=== PATIENT | female | born 1945 | race Caucasian/White ===

== ENCOUNTER 2022-01-26 02:33 | Inpatient (IN) | payer MEDICARE, MEDICAID ==
[2022-01-26] MEDS ORDERED: Ondansetron PF 4 MG/2 ML Vial IVP PRN (06:39)
[2022-01-26] MEDS ORDERED: HYDROcodone/Acetaminophen 7.5/325 mg Tablet PO SCH (06:45)
[2022-01-26 07:27] LABS: Mean Corpuscular HGB CONC 31.6 g/dL (32.0-36.0); Mean Corpuscular Hemoglobin 30.4 pg (27.0-31.0); Mean Corpuscular Volume 96.3 fL (78.0-98.0); Platelet Count 155 thou/uL (130-400); RBC Distribution Width 13.5 % (11.5-14.5); Red Blood Cell (RBC) Count 4.29 mill/uL (4.20-5.40); White Blood Cell (WBC) Count 33.1 thou/uL (4.8-10.8)
[2022-01-26 07:36] LABS: INR-International Normal Ratio 1.1; Prothrombin Time 14.2 sec (12.0-14.7)
[2022-01-26 07:37] LABS: PTT 38.3 sec (22.9-36.1)
[2022-01-26 07:38] LABS: Lactic Acid 2.2 mmol/L (0.5-2.2)
[2022-01-26 07:42] LABS: ALT (SGPT) 11 U/L (8-55); AST (SGOT) 18 U/L (5-34); Alkaline Phosphatase 91 U/L (40-110); Anion Gap 17 mmol/L (10-20); BUN (Urea Nitrogen) 15 mg/dL (9.8-20.1); Calc. Creatinine Clearance 95 mL/min (70-130); Calcium 8.9 mg/dL (7.8-10.44); Carbon Dioxide 23 mmol/L (23-31); Chloride 102 mmol/L (98-107); Globulin 3.7 g/dL (2.4-3.5); Glucose 118 mg/dL (83-110); Potassium 4.7 mmol/L (3.5-5.1); Protein, Total 7.7 g/dL (5.8-8.1); Sodium 137 mmol/L (136-145)
[2022-01-26 07:47] LABS: Troponin I 0.025 ng/mL (< 0.028)
[2022-01-26 07:52] LABS: Band 28 % (5-11); Lymphocytes 5 % (21-51); MDiff Complete? YES; Metamyelocyte 1 % (0-0); Monocytes 2 % (0-10); Neutrophil 64 % (42-75); Platelet Morphology Comment Appears Adequate; Polychromasia SLIGHT = 2-3 cells (100X) (0-2/hpf); RBC Morphology Normal; Stomatocytes SLIGHT = 2-5 cells (100X) (0-1/hpf)
[2022-01-26 09:07] LABS: SARS-CoV-2 NAA Rapid Test Not Detected (NotDetected)
[2022-01-26] MEDS ORDERED: ALPRAZolam 0.25 MG TAB PO PRN (10:37)
[2022-01-26] MEDS ORDERED: Cyclobenzaprine 10 MG TAB PO PRN (12:31)
[2022-01-26] MEDS: Pregabalin 75 MG CAP PO SCH ×2 (14:15→20:46)
[2022-01-26] MEDS ORDERED: Guaifenesin DM 100-10/5 ML UDCUP PO PRN (15:04)
[2022-01-26] MEDS: HYDROcodone/Acetaminophen 10/325 mg Tablet PO PRN ×2 (15:55→21:55)
[2022-01-26] MEDS: Acetaminophen 325 MG TAB PO PRN ×2 (17:42→23:18)
[2022-01-26] MEDS: Famotidine 20 MG TAB PO SCH (20:46)
[2022-01-26] MEDS: NIFEdipine XL 60 MG TAB PO SCH (20:46)
[2022-01-26] MEDS: Enoxaparin Sodium 40 MG/0.4 ML SYRINGE SC SCH (20:46)
[2022-01-26] MEDS: DULoxetine 30 MG CAP PO SCH (20:46)
[2022-01-26] MEDS: Bisoprolol Fumarate 5 MG TAB PO SCH (20:46)
[2022-01-26] MEDS ORDERED: traZODone HCl 50 MG TAB PO SCH (21:00)
[2022-01-26] MEDS ORDERED: Zolpidem Tartrate 5 MG TAB PO PRN (21:36)
[2022-01-26] MEDS ORDERED: cefTRIAXone\\ROCEPHIN 2 GM in Sodium Chloride 0.9% 100 ML IVPB SCH (22:00)
[2022-01-26] MEDS ORDERED: cefTRIAXone\\ROCEPHIN 1 GM in Sodium Chloride 0.9% 100 ML IVPB SCH (22:00)
[2022-01-26] MEDS ORDERED: methylPREDNISolone Sod Succ 40 MG VIAL ONE (22:08)
[2022-01-26] MEDS ORDERED: Furosemide 40 MG/4 ML VIAL ONE (22:08)
[2022-01-26 22:38] LABS: Actual Bicarbonate (HCO3a) 23.5 mEq/L (22-28); Base Excess (BEa) -5.9 mEq/L (-2.0 to +3.0); Calcium, Ionized (arterial) 1.17 mmol/L (1.12-1.30); Carboxyhemoglobin (COHb) 1.2 gm% (0.0-3.0); Hemoglobin (Hb) 12.4 g/dL (12.0-16.0); Potassium - ABG Lab 4.02 mmol/L (3.70-5.30)
[2022-01-26 22:40] LABS: CO2 Tension 65.7 mmHg (35.0-45.0); O2 Tension (PaO2), arterial 54.7 mmHg (> 70.0); pH, Arterial 7.17 (7.35-7.45)
[2022-01-26 22:41] LABS: ALV-art Gradient 576.175 mmHg (0-20); Puncture Site RRA
[2022-01-26] MEDS ORDERED: fentaNYL Citrate/PF 2,000 MCG in Sodium Chloride 0.9% 60 ML IV PRN (22:59)
[2022-01-26] MEDS ORDERED: Propofol 1,000 MG/100 ML VIAL IV ONE (22:59)
[2022-01-26] MEDS ORDERED: Lorazepam 2 MG/ML VIAL SLOW IVP PRN (23:00)
[2022-01-26] MEDS ORDERED: fentaNYL Citrate-0.9 % NaCl/PF 100 ML IV SCH (23:00)
[2022-01-26] MEDS ORDERED: Fentanyl BOLUS 250 ML IVPB PRN (23:00)
[2022-01-26] MEDS ORDERED: Propofol BOLUS 1,000 MG/100 ML VIAL IV PRN (23:00)
[2022-01-26] MEDS ORDERED: DISCONTINUE PREVIOUS NARCOTIC PAIN MEDICATIONS AND BENZODIAZEPINES FS SCH (23:00)
[2022-01-26] MEDS ORDERED: Morphine 2 MG/ML VIAL SLOW IVP PRN (23:00)
[2022-01-26] MEDS ORDERED: Midazolam In 0.9 % NaCl/PF 100 ML IVPB SCH (23:00)
[2022-01-26] MEDS: Propofol 1,000 MG/100 ML VIAL IV PRN (23:02)
[2022-01-26 23:09] LABS: Actual Bicarbonate (HCO3a) 25.9 mEq/L (22-28); Base Excess (BEa) 0.9 mEq/L (-2.0 to +3.0); Calcium, Ionized (arterial) 1.08 mmol/L (1.12-1.30); Carboxyhemoglobin (COHb) 1.1 gm% (0.0-3.0); Hemoglobin (Hb) 11.7 g/dL (12.0-16.0); O2 Tension (PaO2), arterial 61.5 mmHg (> 70.0); Potassium - ABG Lab 3.75 mmol/L (3.70-5.30)
[2022-01-26 23:11] LABS: Puncture Site LRA
[2022-01-26] MEDS: Cefepime 2 GM in Sodium Chloride 0.9% 100 ML IVPB SCH (23:19)
[2022-01-26 23:31] LABS: Hemoglobin 11.2 g/dL (12.0-16.0); Mean Corpuscular HGB CONC 31.5 g/dL (32.0-36.0); Mean Corpuscular Volume 95.1 fL (78.0-98.0); Mean Platelet Volume 8.3 fL (7.4-10.4); Platelet Count 128 thou/uL (130-400); RBC Distribution Width 13.4 % (11.5-14.5); Red Blood Cell (RBC) Count 3.74 mill/uL (4.20-5.40); White Blood Cell (WBC) Count 21.6 thou/uL (4.8-10.8)
[2022-01-26 23:47] LABS: ALT (SGPT) 12 U/L (8-55); AST (SGOT) 33 U/L (5-34); Albumin 3.5 g/dL (3.4-4.8); Alkaline Phosphatase 83 U/L (40-110); Anion Gap 16 mmol/L (10-20); BUN (Urea Nitrogen) 17 mg/dL (9.8-20.1); Band 21 % (5-11); Calc. Creatinine Clearance 101 mL/min (70-130); Calcium 8.1 mg/dL (7.8-10.44); Carbon Dioxide 22 mmol/L (23-31); Chloride 99 mmol/L (98-107); Globulin 3.4 g/dL (2.4-3.5); Glucose 170 mg/dL (83-110); Lymphocytes 2 % (21-51); MDiff Complete? YES; Monocytes 3 % (0-10); Neutrophil 74 % (42-75); Potassium 3.8 mmol/L (3.5-5.1); Protein, Total 6.9 g/dL (5.8-8.1); Sodium 133 mmol/L (136-145)
[2022-01-27] MEDS ORDERED: Azithromycin 500 MG in Sodium Chloride 0.9% 250 ML 250 ML IVPB SCH
[2022-01-27] MEDS: VANCOMYCIN 2 GRAM/500 ML BAG 2 GM in Premix Bag 1 BAG IVPB SCH (00:42)
[2022-01-27 04:41] LABS: Anion Gap 12 mmol/L (10-20); BUN (Urea Nitrogen) 19 mg/dL (9.8-20.1); Calc. Creatinine Clearance 97 mL/min (70-130); Calcium 8.2 mg/dL (7.8-10.44); Carbon Dioxide 26 mmol/L (23-31); Chloride 99 mmol/L (98-107); Glucose 158 mg/dL (83-110); Potassium 3.7 mmol/L (3.5-5.1); Sodium 133 mmol/L (136-145)
[2022-01-27 04:53] LABS: #Lymphocytes 0.8 thou/uL (1.20-3.40); #Monocytes 0.4 thou/uL (0.11-0.59); #Neutrophils 18.8 thou/uL (1.40-6.50); %Lymphocytes 3.8 % (21.0-51.0); %Monocytes 2.1 % (0.0-10.0); Mean Corpuscular HGB CONC 31.3 g/dL (32.0-36.0); Mean Corpuscular Hemoglobin 29.9 pg (27.0-31.0); Mean Corpuscular Volume 95.6 fL (78.0-98.0); Mean Platelet Volume 8.8 fL (7.4-10.4); Platelet Count 113 thou/uL (130-400); RBC Distribution Width 13.3 % (11.5-14.5); Red Blood Cell (RBC) Count 3.68 mill/uL (4.20-5.40)
[2022-01-27] MEDS: Levothyroxine Sodium 50 MCG TAB PO SCH (05:40)
[2022-01-27] MEDS: Propofol 1,000 MG/100 ML VIAL IV PRN (05:40)
[2022-01-27] MEDS ORDERED: Non-Formulary Item 1 EACH (Olmesartan Medoxomil [Benicar] 40 MG Tab) PO SCH (09:00)
[2022-01-27] MEDS ORDERED: Non-Formulary Item 1 EACH (Levothyroxine Sodium [Levothyroxine] 50 MCG Capsule) PO SCH (09:00)
[2022-01-27] MEDS: Cefepime 2 GM in Sodium Chloride 0.9% 100 ML IVPB SCH ×2 (09:02→15:25)
[2022-01-27] MEDS: Losartan 25 MG TAB PO SCH (09:02)
[2022-01-27] MEDS: Enoxaparin Sodium 40 MG/0.4 ML SYRINGE SC SCH (09:02)
[2022-01-27] MEDS: Famotidine 20 MG TAB PO SCH ×2 (09:02→20:07)
[2022-01-27] MEDS: Pregabalin 75 MG CAP PO SCH ×3 (09:04→20:07)
[2022-01-27] MEDS: DULoxetine 30 MG CAP PO SCH ×2 (09:05→20:08)
[2022-01-27] MEDS ORDERED: Dexmedetomidine In 0.9 % NaCl 100 ML IVPB SCH (10:45)
[2022-01-27] MEDS: HYDROcodone/Acetaminophen 5/325 mg Tablet PO SCH (20:08)
[2022-01-27] MEDS: NIFEdipine XL 60 MG TAB PO SCH (20:08)
[2022-01-27] MEDS: Bisoprolol Fumarate 5 MG TAB PO SCH (20:09)
[2022-01-27] MEDS ORDERED: Rocuronium Bromide 10 MG/ML (10ML VIAL) ONE (22:22)
[2022-01-28] MEDS: Cefepime 2 GM in Sodium Chloride 0.9% 100 ML IVPB SCH ×2 (00:18→07:55)
[2022-01-28] MEDS ORDERED: Melatonin 3 MG TAB PO SCH (00:45)
[2022-01-28] MEDS: VANCOMYCIN 2 GRAM/500 ML BAG 2 GM in Premix Bag 1 BAG IVPB SCH (01:12)
[2022-01-28 04:51] LABS: #Eosinphils 0.1 thou/uL (0.0-0.7); #Lymphocytes 1.4 thou/uL (1.20-3.40); #Monocytes 1.2 thou/uL (0.11-0.59); #Neutrophils 16.4 thou/uL (1.40-6.50); %Basophils 0.1 % (0.0-1.0); %Eosinophils 0.7 % (0.0-10.0); %Lymphocytes 7.1 % (21.0-51.0); %Monocytes 6.4 % (0.0-10.0); %Neutrophils 85.7 % (42.0-75.0); Hemoglobin 10.5 g/dL (12.0-16.0); Mean Corpuscular HGB CONC 30.8 g/dL (32.0-36.0); Mean Corpuscular Hemoglobin 29.9 pg (27.0-31.0); Mean Corpuscular Volume 97.3 fL (78.0-98.0); Platelet Count 102 thou/uL (130-400); RBC Distribution Width 13.3 % (11.5-14.5); Red Blood Cell (RBC) Count 3.51 mill/uL (4.20-5.40); White Blood Cell (WBC) Count 19.1 thou/uL (4.8-10.8)
[2022-01-28 04:54] LABS: Anion Gap 10 mmol/L (10-20); BUN (Urea Nitrogen) 20 mg/dL (9.8-20.1); Calc. Creatinine Clearance 105 mL/min (70-130); Calcium 8.5 mg/dL (7.8-10.44); Carbon Dioxide 29 mmol/L (23-31); Chloride 103 mmol/L (98-107); Glucose 119 mg/dL (83-110); Magnesium 2.1 mg/dL (1.6-2.6); Potassium 3.9 mmol/L (3.5-5.1); Sodium 138 mmol/L (136-145)
[2022-01-28] MEDS: Levothyroxine Sodium 50 MCG TAB PO SCH (05:22)
[2022-01-28] MEDS: HYDROcodone/Acetaminophen 5/325 mg Tablet PO SCH ×3 (07:54→20:05)
[2022-01-28] MEDS: Famotidine 20 MG TAB PO SCH ×2 (07:54→20:04)
[2022-01-28] MEDS: DULoxetine 30 MG CAP PO SCH ×2 (08:10→20:18)
[2022-01-28] MEDS: Pregabalin 75 MG CAP PO SCH ×3 (08:10→20:04)
[2022-01-28] MEDS: Losartan 25 MG TAB PO SCH (13:52)
[2022-01-28] MEDS ORDERED: HYDROmorphone 0.5 MG/0.5 ML SYRINGE SLOW IVP SCH (15:30)
[2022-01-28] MEDS: Oxacillin 2 GM in Sodium Chloride 0.9% 100 ML IVPB SCH ×2 (16:41→20:08)
[2022-01-28] MEDS: NIFEdipine XL 60 MG TAB PO SCH (20:04)
[2022-01-28] MEDS: Bisoprolol Fumarate 5 MG TAB PO SCH (20:07)
[2022-01-29] MEDS: Oxacillin 2 GM in Sodium Chloride 0.9% 100 ML IVPB SCH ×6 (00:10→20:46)
[2022-01-29 00:42] LABS: Vancomycin, Trough 12.4 ug/mL
[2022-01-29] MEDS: Levothyroxine Sodium 50 MCG TAB PO SCH (05:01)
[2022-01-29 05:31] LABS: #Eosinphils 0.1 thou/uL (0.0-0.7); #Lymphocytes 1.3 thou/uL (1.20-3.40); #Monocytes 1.5 thou/uL (0.11-0.59); #Neutrophils 11.1 thou/uL (1.40-6.50); %Basophils 0.2 % (0.0-1.0); %Eosinophils 0.5 % (0.0-10.0); %Monocytes 10.4 % (0.0-10.0); %Neutrophils 79.9 % (42.0-75.0); Hemoglobin 10.3 g/dL (12.0-16.0); Mean Corpuscular HGB CONC 30.5 g/dL (32.0-36.0); Mean Corpuscular Hemoglobin 29.9 pg (27.0-31.0); Mean Corpuscular Volume 98.1 fL (78.0-98.0); Mean Platelet Volume 8.7 fL (7.4-10.4); Platelet Count 107 thou/uL (130-400); RBC Distribution Width 13.2 % (11.5-14.5); Red Blood Cell (RBC) Count 3.44 mill/uL (4.20-5.40)
[2022-01-29 05:42] LABS: Anion Gap 11 mmol/L (10-20); BUN (Urea Nitrogen) 26 mg/dL (9.8-20.1); Calc. Creatinine Clearance 82 mL/min (70-130); Calcium 8.5 mg/dL (7.8-10.44); Carbon Dioxide 26 mmol/L (23-31); Chloride 102 mmol/L (98-107); Glucose 97 mg/dL (83-110); Potassium 3.9 mmol/L (3.5-5.1); Sodium 135 mmol/L (136-145)
[2022-01-29] MEDS: Pregabalin 75 MG CAP PO SCH ×3 (08:22→20:43)
[2022-01-29] MEDS: HYDROcodone/Acetaminophen 5/325 mg Tablet PO SCH ×3 (08:23→20:42)
[2022-01-29] MEDS: DULoxetine 30 MG CAP PO SCH ×2 (08:23→20:42)
[2022-01-29] MEDS: Famotidine 20 MG TAB PO SCH ×2 (08:23→20:44)
[2022-01-29] MEDS: Losartan 25 MG TAB PO SCH (08:28)
[2022-01-29] MEDS ORDERED: Furosemide 40 MG/4 ML VIAL SLOW IVP SCH (15:30)
[2022-01-29] MEDS: Bisoprolol Fumarate 5 MG TAB PO SCH (20:42)
[2022-01-29] MEDS: NIFEdipine XL 60 MG TAB PO SCH (20:49)
[2022-01-30] MEDS: Oxacillin 2 GM in Sodium Chloride 0.9% 100 ML IVPB SCH ×6 (00:57→19:53)
[2022-01-30] MEDS: Levothyroxine Sodium 50 MCG TAB PO SCH ×2 (05:10→07:01)
[2022-01-30] MEDS ORDERED: Lorazepam 2 MG/ML VIAL ONE (05:46)
[2022-01-30] MEDS ORDERED: Lorazepam 2 MG/ML VIAL SLOW IVP SCH (06:00)
[2022-01-30] MEDS ORDERED: Aspirin 300 MG Suppository PR SCH (06:15)
[2022-01-30] MEDS: HYDROcodone/Acetaminophen 5/325 mg Tablet PO SCH (07:44)
[2022-01-30] MEDS: DULoxetine 30 MG CAP PO SCH ×3 (07:44→21:47)
[2022-01-30] MEDS: Losartan 25 MG TAB PO SCH (07:44)
[2022-01-30] MEDS: Famotidine 20 MG TAB PO SCH ×3 (07:44→21:48)
[2022-01-30] MEDS: Pregabalin 75 MG CAP PO SCH (07:45)
[2022-01-30] MEDS ORDERED: Furosemide 100 MG/10 ML VIAL SLOW IVP SCH (13:09)
[2022-01-30] MEDS: Bisoprolol Fumarate 5 MG TAB PO SCH (21:32)
[2022-01-30] MEDS: NIFEdipine XL 60 MG TAB PO SCH ×2 (21:32→21:56)
[2022-01-30] MEDS: Rifampin 300 MG CAP PO SCH (21:46)
[2022-01-31] MEDS: Oxacillin 2 GM in Sodium Chloride 0.9% 100 ML IVPB SCH ×6 (00:57→20:45)
[2022-01-31 04:36] LABS: ALT (SGPT) 13 U/L (8-55); AST (SGOT) 16 U/L (5-34); Albumin 2.6 g/dL (3.4-4.8); Alkaline Phosphatase 67 U/L (40-110); Anion Gap 18 mmol/L (10-20); BUN (Urea Nitrogen) 57 mg/dL (9.8-20.1); Bilirubin, Total 0.6 mg/dL (0.2-1.2); Calc. Creatinine Clearance 24 mL/min (70-130); Calcium 8.4 mg/dL (7.8-10.44); Carbon Dioxide 20 mmol/L (23-31); Chloride 101 mmol/L (98-107); Globulin 3.5 g/dL (2.4-3.5); Glucose 82 mg/dL (83-110); Magnesium 2.3 mg/dL (1.6-2.6); Potassium 4.6 mmol/L (3.5-5.1); Protein, Total 6.1 g/dL (5.8-8.1); Sodium 134 mmol/L (136-145)
[2022-01-31 04:40] LABS: Hemoglobin 11.2 g/dL (12.0-16.0); Mean Corpuscular Hemoglobin 30.5 pg (27.0-31.0); Mean Corpuscular Volume 98.3 fL (78.0-98.0); Mean Platelet Volume 8.6 fL (7.4-10.4); Platelet Count 174 thou/uL (130-400); RBC Distribution Width 13.2 % (11.5-14.5); Red Blood Cell (RBC) Count 3.65 mill/uL (4.20-5.40); White Blood Cell (WBC) Count 18.6 thou/uL (4.8-10.8)
[2022-01-31 04:42] LABS: Band 3 % (5-11); Eosinophils 3 % (0-10); Lymphocytes 9 % (21-51); MDiff Complete? YES; Monocytes 13 % (0-10); Neutrophil 71 % (42-75)
[2022-01-31] MEDS ORDERED: Sodium Chloride 0.9% 500 ML IV SCH (05:00)
[2022-01-31] MEDS: Sodium Chloride 0.9% 1,000 ML IV SCH ×2 (05:17→16:53)
[2022-01-31] MEDS: Levothyroxine Sodium 50 MCG TAB PO SCH (05:18)
[2022-01-31] MEDS ORDERED: Aspirin 300 MG Suppository PR SCH (09:00)
[2022-01-31] MEDS: DULoxetine 30 MG CAP PO SCH ×2 (09:56→20:41)
[2022-01-31] MEDS: Rifampin 300 MG CAP PO SCH ×2 (09:56→21:04)
[2022-01-31] MEDS ORDERED: Aspirin Chewable 81 MG TAB PO SCH (10:00)
[2022-01-31] MEDS ORDERED: Heparin 5,000 UNITS/ML VIAL SC SCH (15:00)
[2022-01-31] MEDS: Bisoprolol Fumarate 5 MG TAB PO SCH (20:41)
[2022-01-31] MEDS: Famotidine 20 MG TAB PO SCH (20:41)
[2022-01-31] MEDS: NIFEdipine XL 60 MG TAB PO SCH (21:04)
[2022-02-01] MEDS: Oxacillin 2 GM in Sodium Chloride 0.9% 100 ML IVPB SCH ×6 (01:29→20:12)
[2022-02-01 04:20] LABS: ALT (SGPT) 9 U/L (8-55); AST (SGOT) 13 U/L (5-34); Albumin 2.3 g/dL (3.4-4.8); Alkaline Phosphatase 64 U/L (40-110); Anion Gap 20 mmol/L (10-20); BUN (Urea Nitrogen) 62 mg/dL (9.8-20.1); Bilirubin, Total 0.7 mg/dL (0.2-1.2); Calc. Creatinine Clearance 19 mL/min (70-130); Calcium 7.6 mg/dL (7.8-10.44); Carbon Dioxide 16 mmol/L (23-31); Chloride 104 mmol/L (98-107); Globulin 3.3 g/dL (2.4-3.5); Glucose 104 mg/dL (83-110); Magnesium 2.2 mg/dL (1.6-2.6); Potassium 4.8 mmol/L (3.5-5.1); Protein, Total 5.6 g/dL (5.8-8.1); Sodium 135 mmol/L (136-145)
[2022-02-01] MEDS: Levothyroxine Sodium 50 MCG TAB PO SCH (04:25)
[2022-02-01 04:53] LABS: Band 6 % (5-11); Hemoglobin 12.7 g/dL (12.0-16.0); Lymphocytes 9 % (21-51); MDiff Complete? YES; Mean Corpuscular HGB CONC 31.5 g/dL (32.0-36.0); Mean Corpuscular Hemoglobin 30.3 pg (27.0-31.0); Mean Corpuscular Volume 96.2 fL (78.0-98.0); Mean Platelet Volume 8.3 fL (7.4-10.4); Monocytes 3 % (0-10); Neutrophil 82 % (42-75); Nucleated RBC 3 % (0); Platelet Count 240 thou/uL (130-400); RBC Distribution Width 13.4 % (11.5-14.5); Red Blood Cell (RBC) Count 4.19 mill/uL (4.20-5.40); White Blood Cell (WBC) Count 22.5 thou/uL (4.8-10.8)
[2022-02-01] MEDS: DULoxetine 30 MG CAP PO SCH ×2 (09:34→19:21)
[2022-02-01] MEDS: Aspirin Chewable 81 MG TAB PO SCH (09:34)
[2022-02-01] MEDS: Sodium Chloride 0.9% 1,000 ML IV SCH ×2 (09:35→21:00)
[2022-02-01] MEDS ORDERED: Gentamicin 80 MG/2 ML VIAL IM SCH ×2 (13:00→13:15)
[2022-02-01] MEDS ORDERED: Gentamicin Sulfate 80 MG in Premix Bag 1 BAG IVPB SCH (13:30)
[2022-02-01] MEDS ORDERED: Heparin 1,000 UNITS/ML VIAL ONE (13:38)
[2022-02-01] MEDS: Bisoprolol Fumarate 5 MG TAB PO SCH (19:21)
[2022-02-01] MEDS: Famotidine 20 MG TAB PO SCH (19:21)
[2022-02-01] MEDS ORDERED: NIFEdipine XL 30 MG TAB PO SCH (21:00)
[2022-02-02] MEDS: Oxacillin 2 GM in Sodium Chloride 0.9% 100 ML IVPB SCH ×6 (00:09→21:38)
[2022-02-02 04:29] LABS: Hemoglobin 10.8 g/dL (12.0-16.0); Mean Corpuscular HGB CONC 31.6 g/dL (32.0-36.0); Mean Corpuscular Hemoglobin 29.9 pg (27.0-31.0); Mean Corpuscular Volume 94.6 fL (78.0-98.0); Mean Platelet Volume 7.7 fL (7.4-10.4); Platelet Count 224 thou/uL (130-400); RBC Distribution Width 13.7 % (11.5-14.5); Red Blood Cell (RBC) Count 3.62 mill/uL (4.20-5.40); White Blood Cell (WBC) Count 16.1 thou/uL (4.8-10.8)
[2022-02-02 04:36] LABS: ALT (SGPT) 9 U/L (8-55); AST (SGOT) 15 U/L (5-34); Albumin 2.2 g/dL (3.4-4.8); Alkaline Phosphatase 53 U/L (40-110); Anion Gap 20 mmol/L (10-20); BUN (Urea Nitrogen) 74 mg/dL (9.8-20.1); Bilirubin, Total 0.7 mg/dL (0.2-1.2); Calc. Creatinine Clearance 15 mL/min (70-130); Calcium 7.4 mg/dL (7.8-10.44); Carbon Dioxide 16 mmol/L (23-31); Chloride 106 mmol/L (98-107); Globulin 3.2 g/dL (2.4-3.5); Glucose 121 mg/dL (83-110); Magnesium 2.4 mg/dL (1.6-2.6); Potassium 4.6 mmol/L (3.5-5.1); Protein, Total 5.4 g/dL (5.8-8.1); Sodium 137 mmol/L (136-145)
[2022-02-02 05:01] LABS: Band 3 % (5-11); Lymphocytes 8 % (21-51); MDiff Complete? YES; Monocytes 4 % (0-10); Neutrophil 85 % (42-75)
[2022-02-02] MEDS: Levothyroxine Sodium 50 MCG TAB PO SCH (06:41)
[2022-02-02] MEDS: Aspirin Chewable 81 MG TAB PO SCH (10:02)
[2022-02-02] MEDS: DULoxetine 30 MG CAP PO SCH (10:06)
[2022-02-02 11:37] LABS: SARS-CoV-2 PCR by NAA Not Detected (NotDetected)
[2022-02-02] MEDS: Acetaminophen 325 MG TAB PO PRN (21:33)
[2022-02-02] MEDS: Bisoprolol Fumarate 5 MG TAB PO SCH (21:35)
[2022-02-02] MEDS: Famotidine 20 MG TAB PO SCH (21:36)
[2022-02-03] MEDS: Oxacillin 2 GM in Sodium Chloride 0.9% 100 ML IVPB SCH ×6 (00:26→20:09)
[2022-02-03] MEDS: Sodium Chloride 0.9% 1,000 ML IV SCH ×2 (00:27→20:09)
[2022-02-03 04:18] LABS: ALT (SGPT) 14 U/L (8-55); AST (SGOT) 26 U/L (5-34); Albumin 2.5 g/dL (3.4-4.8); Alkaline Phosphatase 61 U/L (40-110); Anion Gap 21 mmol/L (10-20); BUN (Urea Nitrogen) 78 mg/dL (9.8-20.1); Bilirubin, Total 0.7 mg/dL (0.2-1.2); Calc. Creatinine Clearance 13 mL/min (70-130); Calcium 7.9 mg/dL (7.8-10.44); Carbon Dioxide 16 mmol/L (23-31); Chloride 106 mmol/L (98-107); Globulin 3.5 g/dL (2.4-3.5); Glucose 116 mg/dL (83-110); Magnesium 2.6 mg/dL (1.6-2.6); Potassium 4.6 mmol/L (3.5-5.1); Sodium 138 mmol/L (136-145)
[2022-02-03 04:57] LABS: Band 1 % (5-11); Eosinophils 2 % (0-10); Hemoglobin 10.3 g/dL (12.0-16.0); Lymphocytes 8 % (21-51); MDiff Complete? YES; Mean Corpuscular HGB CONC 32.1 g/dL (32.0-36.0); Mean Corpuscular Hemoglobin 30.2 pg (27.0-31.0); Mean Platelet Volume 7.9 fL (7.4-10.4); Metamyelocyte 2 % (0-0); Monocytes 8 % (0-10); Neutrophil 79 % (42-75); Platelet Count 209 thou/uL (130-400); Platelet Morphology Comment Appears Adequate; RBC Distribution Width 13.6 % (11.5-14.5); RBC Morphology Normal; Red Blood Cell (RBC) Count 3.42 mill/uL (4.20-5.40); White Blood Cell (WBC) Count 14.5 thou/uL (4.8-10.8)
[2022-02-03] MEDS: Levothyroxine Sodium 50 MCG TAB PO SCH (05:39)
[2022-02-03] MEDS: Aspirin Chewable 81 MG TAB PO SCH (09:27)
[2022-02-03] MEDS: Acetaminophen 325 MG TAB PO PRN ×2 (09:27→19:46)
[2022-02-03 12:18] LABS: Hep B Core Total Ab Non-Reactive (NonReactive)
[2022-02-03 12:19] LABS: HBSAB Concentration Less than 8.00 mIU/mL; HBSAg Index 0.24 S/CO (0-0.99); Hep B Surf AB Non-Reactive (NonReactive); Hep B Surf Ag Non-Reactive S/CO (NonReactive); Hep C IgG Ab Non-Reactive (NonReactive); Hep C Index 0.05 S/CO (0-0.79)
[2022-02-03] MEDS ORDERED: Heparin 10,000 UNITS/ 10 ML VIAL ONE (14:10)
[2022-02-03] MEDS: Famotidine 20 MG TAB PO SCH (19:48)
[2022-02-03] MEDS: Bisoprolol Fumarate 5 MG TAB PO SCH (19:48)
[2022-02-04] MEDS: Oxacillin 2 GM in Sodium Chloride 0.9% 100 ML IVPB SCH ×6 (00:08→20:08)
[2022-02-04] MEDS: Acetaminophen 325 MG TAB PO PRN ×2 (00:11→05:32)
[2022-02-04 04:38] LABS: Band 4 % (5-11); Hemoglobin 9.8 g/dL (12.0-16.0); Hypochromia SLIGHT = 6-15 cells (100X) (0-5/hpf); Lymphocytes 16 % (21-51); MDiff Complete? YES; Mean Corpuscular HGB CONC 32.1 g/dL (32.0-36.0); Mean Corpuscular Hemoglobin 29.8 pg (27.0-31.0); Mean Corpuscular Volume 92.7 fL (78.0-98.0); Monocytes 17 % (0-10); Neutrophil 63 % (42-75); Platelet Count 244 thou/uL (130-400); Platelet Morphology Comment Appears Adequate; RBC Distribution Width 14.1 % (11.5-14.5); White Blood Cell (WBC) Count 18.6 thou/uL (4.8-10.8)
[2022-02-04] MEDS: Levothyroxine Sodium 50 MCG TAB PO SCH (05:33)
[2022-02-04] MEDS: Aspirin Chewable 81 MG TAB PO SCH (08:04)
[2022-02-04 08:11] LABS: ALT (SGPT) 16 U/L (8-55); AST (SGOT) 29 U/L (5-34); Albumin 2.7 g/dL (3.4-4.8); Alkaline Phosphatase 65 U/L (40-110); Anion Gap 18 mmol/L (10-20); BUN (Urea Nitrogen) 62 mg/dL (9.8-20.1); Bilirubin, Total 0.8 mg/dL (0.2-1.2); Calc. Creatinine Clearance 15 mL/min (70-130); Calcium 8.2 mg/dL (7.8-10.44); Carbon Dioxide 19 mmol/L (23-31); Chloride 107 mmol/L (98-107); Globulin 3.9 g/dL (2.4-3.5); Glucose 120 mg/dL (83-110); Potassium 4.2 mmol/L (3.5-5.1); Protein, Total 6.6 g/dL (5.8-8.1); Sodium 140 mmol/L (136-145)
[2022-02-04 08:15] LABS: Actual Bicarbonate (HCO3v) 18 mEq/L (22-28); Base Excess -9.6 mEq/L (-2.0 to +3.0); Chloride (VBG) 105 mmol/L (98-106); Hemoglobin (Hb) 10.2 g/dL (11.7-16.1); Potassium (VBG) 4.24 mmol/L (3.70-5.30); Sodium 136.7 mmol/L (133-146); pH (venous) 7.22 (7.32-7.43)
[2022-02-04] MEDS ORDERED: Sodium Bicarbonate 150 MEQ in Dextrose 5% in Water 1,000 ML IV SCH (10:00)
[2022-02-04] MEDS ORDERED: Gentamicin 80 MG/2 ML VIAL IM SCH (11:00)
[2022-02-04] MEDS ORDERED: GENTAMICIN 80 MG/2 ML IM SCH (14:00)
[2022-02-04] MEDS ORDERED: Heparin 10,000 UNITS/ 10 ML VIAL ONE (14:12)
[2022-02-04] MEDS ORDERED: Morphine 2 MG/ML VIAL SLOW IVP PRN (14:55)
[2022-02-04] MEDS: HYDROcodone/Acetaminophen 10/325 mg Tablet PER TUBE PRN (16:36)
[2022-02-04] MEDS: Morphine 2 MG/ML VIAL SLOW IVP PRN ×2 (17:45→21:08)
[2022-02-04] MEDS: Bisoprolol Fumarate 5 MG TAB PO SCH (20:07)
[2022-02-04] MEDS: Famotidine 20 MG TAB PO SCH (20:07)
[2022-02-04] MEDS: Pregabalin 75 MG CAP PER TUBE SCH (20:08)
[2022-02-04] MEDS: traZODone HCl 50 MG TAB PER TUBE SCH (20:09)
[2022-02-04] MEDS ORDERED: Pregabalin 75 MG CAP PER TUBE SCH (21:00)
[2022-02-05] MEDS: Oxacillin 2 GM in Sodium Chloride 0.9% 100 ML IVPB SCH ×6 (00:34→20:37)
[2022-02-05] MEDS: Morphine 2 MG/ML VIAL SLOW IVP PRN ×3 (00:34→21:00)
[2022-02-05 04:52] LABS: Hemoglobin 8.6 g/dL (12.0-16.0); MDiff Complete? YES; Mean Corpuscular HGB CONC 32.4 g/dL (32.0-36.0); Mean Corpuscular Volume 92.7 fL (78.0-98.0); Mean Platelet Volume 8.4 fL (7.4-10.4); Platelet Count 229 thou/uL (130-400); RBC Distribution Width 14.2 % (11.5-14.5); Red Blood Cell (RBC) Count 2.86 mill/uL (4.20-5.40); White Blood Cell (WBC) Count 19.5 thou/uL (4.8-10.8)
[2022-02-05 04:53] LABS: Band 3 % (5-11); Lymphocytes 9 % (21-51); Monocytes 7 % (0-10); Neutrophil 81 % (42-75); Platelet Morphology Comment Appears Adequate; RBC Morphology Normal
[2022-02-05 04:59] LABS: Anion Gap 14 mmol/L (10-20); BUN (Urea Nitrogen) 45 mg/dL (9.8-20.1); Calc. Creatinine Clearance 19 mL/min (70-130); Calcium 8.2 mg/dL (7.8-10.44); Carbon Dioxide 30 mmol/L (23-31); Chloride 99 mmol/L (98-107); Glucose 123 mg/dL (83-110); Potassium 3.5 mmol/L (3.5-5.1); Sodium 139 mmol/L (136-145)
[2022-02-05] MEDS: Levothyroxine Sodium 50 MCG TAB PO SCH (05:01)
[2022-02-05] MEDS: Aspirin Chewable 81 MG TAB PO SCH (08:34)
[2022-02-05 11:51] LABS: Actual Bicarbonate (HCO3v) 29 mEq/L (22-28); Base Excess 1.7 mEq/L (-2.0 to +3.0); Calcium, Ionized (venous) 1.09 mmol/L (1.16-1.32); Chloride (VBG) 99 mmol/L (98-106); Potassium (VBG) 3.65 mmol/L (3.70-5.30); Sodium 135.9 mmol/L (133-146); pH (venous) 7.28 (7.32-7.43)
[2022-02-05] MEDS ORDERED: Naloxone HCl 0.4 mg/ml Vial ONE (11:55)
[2022-02-05] MEDS ORDERED: Naloxone HCl 0.4 mg/ml Vial IV PRN (12:09)
[2022-02-05] MEDS ORDERED: Heparin 10,000 UNITS/ 10 ML VIAL ONE (14:07)
[2022-02-05] MEDS: Famotidine 20 MG TAB PO SCH (20:36)
[2022-02-05] MEDS: traZODone HCl 50 MG TAB PER TUBE SCH (20:36)
[2022-02-05] MEDS: Pregabalin 75 MG CAP PER TUBE SCH (20:36)
[2022-02-05] MEDS: Bisoprolol Fumarate 5 MG TAB PO SCH (20:37)
[2022-02-05] MEDS: HYDROcodone/Acetaminophen 10/325 mg Tablet PER TUBE PRN (21:46)
[2022-02-06] MEDS: Oxacillin 2 GM in Sodium Chloride 0.9% 100 ML IVPB SCH ×6 (00:59→21:05)
[2022-02-06] MEDS: HYDROcodone/Acetaminophen 10/325 mg Tablet PER TUBE PRN ×2 (03:39→22:38)
[2022-02-06] MEDS: Levothyroxine Sodium 50 MCG TAB PO SCH (04:47)
[2022-02-06 05:01] LABS: Band 24 % (5-11); Eosinophils 2 % (0-10); Hemoglobin 8.5 g/dL (12.0-16.0); Hypochromia SLIGHT = 6-15 cells (100X) (0-5/hpf); Lymphocytes 6 % (21-51); MDiff Complete? YES; Mean Corpuscular HGB CONC 33.6 g/dL (32.0-36.0); Mean Corpuscular Hemoglobin 31.2 pg (27.0-31.0); Mean Platelet Volume 8.8 fL (7.4-10.4); Monocytes 4 % (0-10); Neutrophil 64 % (42-75); Platelet Count 257 thou/uL (130-400); Platelet Morphology Comment Appears Adequate; RBC Distribution Width 14.3 % (11.5-14.5); Red Blood Cell (RBC) Count 2.73 mill/uL (4.20-5.40); White Blood Cell (WBC) Count 20.1 thou/uL (4.8-10.8)
[2022-02-06 05:49] LABS: Anion Gap 17 mmol/L (10-20); BUN (Urea Nitrogen) 56 mg/dL (9.8-20.1); Calc. Creatinine Clearance 17 mL/min (70-130); Calcium 8.7 mg/dL (7.8-10.44); Carbon Dioxide 26 mmol/L (23-31); Chloride 100 mmol/L (98-107); Glucose 115 mg/dL (83-110); Potassium 3.4 mmol/L (3.5-5.1); Sodium 140 mmol/L (136-145)
[2022-02-06] MEDS: Aspirin Chewable 81 MG TAB PO SCH (08:45)
[2022-02-06 09:25] VITALS: BMI 50.5
[2022-02-06] MEDS: Morphine 2 MG/ML VIAL SLOW IVP PRN ×3 (12:08→21:06)
[2022-02-06] MEDS ORDERED: Heparin 10,000 UNITS/ 10 ML VIAL ONE (14:09)
[2022-02-06] MEDS: Famotidine 20 MG TAB PO SCH (21:06)
[2022-02-06] MEDS: Pregabalin 75 MG CAP PER TUBE SCH (21:06)
[2022-02-06] MEDS: Bisoprolol Fumarate 5 MG TAB PO SCH (21:06)
[2022-02-06] MEDS: traZODone HCl 50 MG TAB PER TUBE SCH (21:06)
[2022-02-07] MEDS: Morphine 2 MG/ML VIAL SLOW IVP PRN ×5 (01:08→20:37)
[2022-02-07] MEDS: Oxacillin 2 GM in Sodium Chloride 0.9% 100 ML IVPB SCH ×5 (01:08→16:49)
[2022-02-07] MEDS: Levothyroxine Sodium 50 MCG TAB PO SCH (04:52)
[2022-02-07] MEDS: Aspirin Chewable 81 MG TAB PO SCH (08:34)
[2022-02-07] MEDS: HYDROcodone/Acetaminophen 10/325 mg Tablet PER TUBE PRN (10:10)
[2022-02-07 13:39] VITALS: BP 149/76
[2022-02-07 21:48] VITALS: TEMP 98.5
== END 2022-02-07 19:55 | disposition short-term general hospital (02) | DRG 871 ==
LOC: 2NO 05:21 → CCU 22:32
PROVIDERS: ADMIT Internal Medicine; ATTEND Family Medicine
PROC: 0BH18EZ Insertion of Endotracheal Airway into Trachea, Via Natural or Artificial Opening Endoscopic (ICD-10-PCS; 2022-01-26)
PROC: 5A1935Z Respiratory Ventilation, Less than 24 Consecutive Hours (ICD-10-PCS; 2022-01-26)
PROC: 3E04329 Introduction of Other Anti-infective into Central Vein, Percutaneous Approach (ICD-10-PCS; 2022-01-26)
PROC: 5A0945A Assistance with Respiratory Ventilation, 24-96 Consecutive Hours, High Flow/Velocity Cannula (ICD-10-PCS; 2022-01-28)
PROC: 02HV33Z Insertion of Infusion Device into Superior Vena Cava, Percutaneous Approach (ICD-10-PCS; principal; 2022-01-30)
PROC: B548ZZA Ultrasonography of Superior Vena Cava, Guidance (ICD-10-PCS; 2022-01-30)
PROC: 02PYX3Z Removal of Infusion Device from Great Vessel, External Approach (ICD-10-PCS; 2022-02-02)
PROC: 06HY33Z Insertion of Infusion Device into Lower Vein, Percutaneous Approach (ICD-10-PCS; 2022-02-02)
PROC: 5A0945A Assistance with Respiratory Ventilation, 24-96 Consecutive Hours, High Flow/Velocity Cannula (ICD-10-PCS; 2022-02-03)
PROC: 5A1D70Z Performance of Urinary Filtration, Intermittent, Less than 6 Hours Per Day (ICD-10-PCS; 2022-02-03)
PROC: 5A09357 Assistance with Respiratory Ventilation, Less than 24 Consecutive Hours, Continuous Positive Airway Pressure (ICD-10-PCS; 2022-02-05)
DX: A41.01 Sepsis due to Methicillin susceptible Staphylococcus aureus (principal); J15.211 Pneumonia due to Methicillin susceptible Staphylococcus aureus; J80 Acute respiratory distress syndrome; I50.33 Acute on chronic diastolic (congestive) heart failure; G93.41 Metabolic encephalopathy; R65.21 Severe sepsis with septic shock; N17.0 Acute kidney failure with tubular necrosis; N18.6 End stage renal disease; I33.0 Acute and subacute infective endocarditis; Z68.43 Body mass index [BMI] 50.0-59.9, adult; J98.11 Atelectasis; I13.0 Hypertensive heart and chronic kidney disease with heart failure and stage 1 through stage 4 chronic kidney disease, or unspecified chronic kidney disease; E87.1 Hypo-osmolality and hyponatremia; F05 Delirium due to known physiological condition; T82.858D Stenosis of other vascular prosthetic devices, implants and grafts, subsequent encounter; E03.9 Hypothyroidism, unspecified; G89.4 Chronic pain syndrome; Z51.5 Encounter for palliative care; Z66 Do not resuscitate; R45.1 Restlessness and agitation; N18.30 Chronic kidney disease, stage 3 unspecified; E88.09 Other disorders of plasma-protein metabolism, not elsewhere classified; I35.0 Nonrheumatic aortic (valve) stenosis; D63.1 Anemia in chronic kidney disease; M06.9 Rheumatoid arthritis, unspecified; M79.7 Fibromyalgia; S30.0XXA Contusion of lower back and pelvis, initial encounter; W18.30XA Fall on same level, unspecified, initial encounter; E66.01 Morbid (severe) obesity due to excess calories; R53.81 Other malaise; M54.50 Low back pain, unspecified; I48.0 Paroxysmal atrial fibrillation; Z20.822 Contact with and (suspected) exposure to COVID-19; Z96.652 Presence of left artificial knee joint; Y83.8 Other surgical procedures as the cause of abnormal reaction of the patient, or of later complication, without mention of misadventure at the time of the procedure; Z80.6 Family history of leukemia; Z88.6 Allergy status to analgesic agent; Z88.2 Allergy status to sulfonamides; Z88.8 Allergy status to other drugs, medicaments and biological substances; Z79.899 Other long term (current) drug therapy; Z79.890 Hormone replacement therapy; Z79.891 Long term (current) use of opiate analgesic; Z98.84 Bariatric surgery status; Z90.49 Acquired absence of other specified parts of digestive tract; Z98.890 Other specified postprocedural states; Z82.49 Family history of ischemic heart disease and other diseases of the circulatory system; Z79.82 Long term (current) use of aspirin; Z95.2 Presence of prosthetic heart valve
CPT/HCPCS: 36415; 36416; 36569; 36600; 70450; 71045; 74018; 80048; 80053; 80150; 80170; 80202; 82805; 83605; 83735; 83880; 84443; 84484; 85025; 85610; 85730; 86704; 86706; 86803; 87040; 87070; 87077; 87149; 87186; 87205; 87340; 90935; 93306; 94002; 94003; 94640; 94660; 95712; 95819; 95957; C1751; G0257; J0692; J0696; J1170; J1580; J1642; J1644; J1650; J1940; J2060; J2270; J2310; J2700; J2704; J2920; J3370; J3490; J7050; J7070; J7620; U0002; U0003; U0005